=== PATIENT | male | born 1975 | race Two or more races ===

== ENCOUNTER 2017-06-19 17:01 | Emergency (ER) | payer OTHER ==
[2017-06-19 17:30] VITALS: BP 116/78
[2017-06-19] MEDS ORDERED: Lidocaine 1% 30 ML SDV INJECT ONE (17:40)
[2017-06-19] MEDS ORDERED: Bacitracin Oint 1 GM U/D Packet TOP ONE (17:40)
--- NOTE | 2017-06-19 17:43 | EDM.PDOC ---
ED HPI GENERAL MEDICAL PROBLEM - General Chief Complaint: Upper Extremity Injury/Pain Stated Complaint: CUT R HAND @ WORK 06/19 [id number] Time Seen by Provider: 06/19/17 17:35 Source of Information: Reports: Patient History Limitations: Reports: No Limitations - History of Present Illness INITIAL COMMENTS - FREE TEXT/NARRATIVE: This 42 yo male patient reports to the ED with a laceration to his right 5th MCP joint. The patient reports that he was washing dishes while at work when he broke a glass and cut his hand. The bleeding was controlled prior to his arrival in the ED. 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) - Related Data Allergies Allergy/AdvReac Type Severity Reaction Status Date / Time pet dander Allergy Mild Other Uncoded 06/19/17 17:31 feathers Allergy Other Uncoded 06/19/17 17:31 Home Meds: Home Meds Claritan 1 cap PO DAILY PRN 06/19/17 [History] Past Medical History - Past Health History Medical/Surgical History: Denies Medical/Surgical History Musculoskeletal History: Reports: Fracture, Other (See Below) Other Musculoskeletal History: states has had fx ankle in the past Social & Family History - Family History Family Medical History: Noncontributory - Tobacco Use Smoking Status *Q: Current Every Day Smoker Years of Tobacco use: 15 Packs/Tins Daily: 0.5 - Caffeine Use Caffeine Use: Reports: Coffee, Soda - Alcohol Use Days Per Week of Alcohol Use: 0 - Recreational Drug Use Recreational Drug Use: No Drug Use in Last 12 Months: No Review of Systems - Review of Systems Review Of Systems: ROS reveals no pertinent complaints other than HPI. ED EXAM, GENERAL - Physical Exam Exam: See Below Exam Limited By: No Limitations General Appearance: Alert, WD/WN, No Apparent Distress Eye Exam: Bilateral Eye: Normal Inspection, PERRL Ears: Normal External Exam Nose: Normal Inspection, Normal Mucosa, No Blood Throat/Mouth: Normal Inspection Head: Atraumatic, Normocephalic Neck: Normal Inspection, Full Range of Motion Respiratory/Chest: No Respiratory Distress (Male) Exam: Deferred Rectal (Males) Exam: Deferred Extremities: Other (right hand laceration) Neurological: Alert, Oriented, CN II-XII Intact, Normal Cognition, Normal Gait, Normal Reflexes, No Motor/Sensory Deficits Psychiatric: Normal Affect, Normal Mood Skin Exam: Warm, Dry, Normal Color, No Rash, Wound/Incision (right 5th mcp) ED TRAUMA EXTREMITY PROCEDURES - Laceration/Wound Repair Right Hand Lac/Wound Length In cm: 1.5 Appearance: Subcutaneous Distal NVT: Neuro & Vascular Intact Anesthetic Type: Local Local Anesthesia - Lidocaine (Xylocaine): 1% Plain Local Anesthetic Volume: 2cc Skin Prep: Chlorhexidine (Hibiciens) Exploration/Debridement/Repair: Wound Explored, In a Bloodless Field, Explored to Base, No Foreign Material Found Closed With: Sutures Suture Size: 4-0 # of Sutures: 4 Suture Type: Prolene, Interrupted, Simple Sterile Dressing Applied: Nurse Tetanus Status Addressed: Yes Complications: No Course - Vital Signs Last Recorded V/S: Last Vital Signs Temp 37.4 C 06/19/17 17:08 Pulse 79 06/19/17 17:08 Resp 14 06/19/17 17:08 BP 116/78 06/19/17 17:08 Pulse Ox 98 06/19/17 17:08 - Orders/Labs/Meds Meds: Medications Discontinued Medications Generic Name Dose Route Start Last Admin Trade Name Walter PRN Reason Stop Dose Admin Bacitracin 1 dose 06/19/17 17:40 06/19/17 17:45 Bacitracin Oint 1 Gm TOP 06/19/17 17:41 1 dose ONETIME ONE Administration Lidocaine HCl 30 ml 06/19/17 17:40 06/19/17 17:44 Xylocaine-Mpf 1% INJECT 06/19/17 17:41 2 ml ONETIME ONE Administration Departure - Departure Time of Disposition: 18:00 Disposition: Home, Self-Care 01 Condition: Fair Clinical Impression: Laceration of right hand without complication, including fingers Qualifiers: Encounter type: initial encounter Qualified Code(s): S61.411A - Laceration without foreign body of right hand, initial encounter - Discharge Information Instructions: Laceration Care, Adult Forms: ED Department Discharge Care Plan Goals: The patient was advised of the examination results during the visit. The laceration margins were well approximated during the visit. The patient was encouraged to keep the area clean and dry over the next 48 hours. The patient should have the sutures removed in 10-14 days. If the patient has any additional symptoms or concerns, the patient should follow-up with his primary care facility or return to the emergency department.
== END 2017-06-19 18:19 | disposition home or self-care (01) ==
LOC: DL.ED 17:01
DX: S61.411A Laceration without foreign body of right hand, initial encounter (principal); Z91.048 Other nonmedicinal substance allergy status; Z79.899 Other long term (current) drug therapy; F17.210 Nicotine dependence, cigarettes, uncomplicated; W25.XXXA Contact with sharp glass, initial encounter; Y93.89 Activity, other specified
CPT/HCPCS: 99283